=== PATIENT | female | born 1950 | race Caucasian/White ===

== ENCOUNTER → 2017-09-03 | Emergency (ER) | payer OTHER ==
[~2017-09-03] VITALS: Ht 167.6 cm; Wt 97.5 kg
[~2017-09-03] MED LIST: AMBIEN5 MG PO; CALCIUM1 TAB PO; FAMOTIDINE20 MG/2 M1 IV; FIORICET 50-301 EACH; FIORICET 50-321 EACH PO; FLOVENT HFA12 GM; IMITREX100 MG PO; MEDROL4 MG PO; NEURONTIN300 MG; NEURONTIN300 MG PO; NORTUSS-EX LIQ118 ML PO; SYNTHROID100 MCG PO; SYNTHROID75 MCG; SYNTHROID88 MCG PO; Synthroid PO; TESSALON PERLE100 M1 PO; TUSICOF LIQUID120 ML PO; TUSSIONEX PENNKI5 ML PO; ULTRACET; ULTRAM50 MG; ULTRAM50 MG PO; XANAX2 MG PO; XOPENEX0.63 MG/3 IH; XOPENEX1.25 MG/0. IH; ZOLOFT100 MG; ZOLOFT50 MG PO
== END | disposition home or self-care (01) ==
LOC: ER 10:39
DX: K57.32 Diverticulitis of large intestine without perforation or abscess without bleeding (principal); M54.5 Low back pain

== ENCOUNTER 2018-06-16 18:41 | Emergency (ER) | payer OTHER ==
[~2018-06-16] VITALS: Ht 165.1 cm; Wt 99.8 kg
[~2018-06-16 18:41] MED LIST changes: -SYNTHROID75 MCG; +SYNTHROID75 MCG PO
[2018-06-19] MEDS ORDERED: FIORICET PO (10:09)
[2018-06-19] MEDS ORDERED: AMBIEN CR12.5 MG PO (10:10)
== END 2018-06-16 22:52 | disposition home or self-care (01) ==
LOC: ER 18:41
DX: S30.0XXA Contusion of lower back and pelvis, initial encounter (principal); W06.XXXA Fall from bed, initial encounter; Y93.89 Activity, other specified; Y92.013 Bedroom of single-family (private) house as the place of occurrence of the external cause; Y99.8 Other external cause status

== ENCOUNTER 2018-06-20 06:32 | Day surgery (SDC) | payer OTHER ==
[~2018-06-20 06:32] MED LIST changes: +AMBIEN CR12.5 MG PO; +FIORICET PO
[2018-06-20] MEDS ORDERED: DUI500 PO (12:29)
[2018-06-20] MEDS ORDERED: ALEVE220 M1 PO (12:29)
[2018-06-20] MEDS ORDERED: PERCOCET 5-3251 EACH PO (12:29)
== END 2018-06-20 18:00 | disposition home or self-care (01) ==
LOC: CIR.AMB 06:32
DX: S82.852A Displaced trimalleolar fracture of left lower leg, initial encounter for closed fracture (principal); S93.04XA Dislocation of right ankle joint, initial encounter; S93.422A Sprain of deltoid ligament of left ankle, initial encounter; S93.492A Sprain of other ligament of left ankle, initial encounter; S90.02XA Contusion of left ankle, initial encounter; M81.0 Age-related osteoporosis without current pathological fracture; E66.8 Other obesity

== ENCOUNTER 2018-10-21 12:09 | Emergency (ER) | payer OTHER ==
[~2018-10-21] VITALS: Ht 170.2 cm; Wt 97.5 kg
[~2018-10-21 12:09] MED LIST changes: +ALEVE220 M1 PO; +DICLOFENAC POTA50 MG PO; +DUI500 PO; +LYRICA50 MG PO; +PERCOCET 5-3251 EACH PO; +TRAMADOL HCL50 MG PO; +ULTRACET PO
[2018-10-21] MEDS ORDERED: OMEPRAZOLE20 MG (12:55)
[2018-10-21] MEDS ORDERED: IMITREX100 MG (12:55)
== END 2018-10-21 18:07 ==
LOC: ER 12:09
DX: G43.809 Other migraine, not intractable, without status migrainosus (principal)

== ENCOUNTER 2019-03-12 11:53 | Emergency (ER) | payer OTHER ==
[~2019-03-12] VITALS: Ht 167.6 cm; Wt 90.7 kg
[~2019-03-12 11:53] MED LIST changes: +IMITREX100 MG; +OMEPRAZOLE20 MG
[2019-03-12] MEDS ORDERED: DULCOLAX STOOL100 M1 (12:16)
== END 2019-03-12 19:07 | disposition home or self-care (01) ==
LOC: ER 11:53
DX: G43.409 Hemiplegic migraine, not intractable, without status migrainosus (principal); K57.32 Diverticulitis of large intestine without perforation or abscess without bleeding

== ENCOUNTER 2019-11-30 15:20 | Day surgery (SDC) | payer OTHER ==
[~2019-11-30 15:20] MED LIST changes: +CELEBREX200MG PO; +CYCLOBENZAPRINE10 MG PO; +DULCOLAX STOOL100 M1; -ZOLOFT100 MG; +ZOLOFT100 MG PO
[2019-11-30] MEDS ORDERED: ALEVE220 M1 PO (15:32)
[2019-11-30] MEDS ORDERED: DUI500 PO (15:32)
[2019-11-30] MEDS ORDERED: PERCOCET 5-3251 EACH PO (15:32)
== END 2019-11-30 18:10 | disposition home or self-care (01) ==
LOC: CIR.AMB 15:20
DX: S52.532A Colles' fracture of left radius, initial encounter for closed fracture (principal); S52.692A Other fracture of lower end of left ulna, initial encounter for closed fracture; M81.0 Age-related osteoporosis without current pathological fracture
CPT/HCPCS: 20902; 25609; 25652; C1776

== ENCOUNTER 2021-03-30 12:59 | Emergency (ER) | payer OTHER ==
[~2021-03-30] VITALS: Ht 167.6 cm; Wt 98.4 kg
[2021-03-30] MEDS ORDERED: LEVOTHYROXINE25 MCG (13:32)
[2021-03-30] MEDS ORDERED: DICLOFENAC SODI75 MG PO (17:33)
== END 2021-03-30 17:40 | disposition home or self-care (01) ==
LOC: ER 12:59
DX: G89.18 Other acute postprocedural pain (principal); M25.532 Pain in left wrist; M79.642 Pain in left hand

== ENCOUNTER 2024-03-12 12:53 | Emergency (ER) | payer OTHER ==
[~2024-03-12] VITALS: Ht 167.6 cm; Wt 66.2 kg
[~2024-03-12 12:53] MED LIST changes: +DICLOFENAC SODI75 MG PO; +LEVOTHYROXINE25 MCG; +ONZETRA XSAIL11 MG; +SYNTHROID88 MCG
[2024-03-12] MEDS ORDERED: BUTALB/ACETAMINOPHEN/CAFFEINE 1 TAB TABLET PO ONE (14:15)
[2024-03-12 14:36] LABS: HEMATOCRIT 37.1 % (36.0-45.00); HEMOGLOBIN 12.7 g/dL (12.0-15.00); MEAN CELL VOLUME 86.4 fL (80.00-100.00); MEAN CORPUSCULAR HEMOGLOBIN 29.7 pg (27.00-32.0); MEAN CORPUSCULAR HGB CONC 34.4 g/dl (32.0-36.0); PLATELET COUNT 177 K/uL (150-450); RED BLOOD COUNT 4.29 M/uL (4.00-6.00); RED CELL DISTRIBUTION WIDTH 14.7 % (11.5-14.5)
[2024-03-12 15:00] LABS: ALBUMIN 3.8 gm/dL (3.4-5.0); BILIRUBIN TOTAL 0.34 mg/dL (0.3-1.2); CALCIUM 9.5 mg/dL (8.5-10.1); CREATININE SERUM 0.45 mg/dL (0.55-1.02); GFR 135.83; GLOBULINA 3.9 G/DL (2.4-3.5); POTASSIUM 4.08 mEq/L (3.5-5.1); TOTAL PROTEIN 7.7 gm/dL (6.4-8.2)
== END 2024-03-12 16:38 | disposition home or self-care (01) ==
LOC: ER 12:53
PROVIDERS: General Practice
DX: R51.9 Headache, unspecified (principal); Z20.822 Contact with and (suspected) exposure to COVID-19; E03.8 Other specified hypothyroidism; Z88.1 Allergy status to other antibiotic agents

== ENCOUNTER → 2024-11-03 | Emergency (ER) | payer OTHER ==
[~2024-11-03] VITALS: Ht 165.1 cm; Wt 88.0 kg
[~2024-11-03] MED LIST changes: +DEXAMETHASONE SODIUM PHOSPHATE 4 MG/ML VIAL IM STA; +DEXAMETHASONE SODIUM PHOSPHATE 4 MG/ML VIAL ONE; +KETOROLAC TROMETHAMINE 60 MG VIAL IM ONE; +KETOROLAC TROMETHAMINE 60 MG VIAL IM STA
[2024-11-03 16:32] LABS: HEMATOCRIT 37.6 % (36.0-45.00); HEMOGLOBIN 12.4 g/dL (12.0-15.00); MEAN CELL VOLUME 87.2 fL (80.00-100.00); MEAN CORPUSCULAR HEMOGLOBIN 28.7 pg (27.00-32.0); MEAN CORPUSCULAR HGB CONC 32.9 g/dl (32.0-36.0); PLATELET COUNT 158 K/uL (150-450); RED BLOOD COUNT 4.31 M/uL (4.00-6.00); RED CELL DISTRIBUTION WIDTH 15.1 % (11.5-14.5)
[2024-11-03 17:20] LABS: CALCIUM 8.5 mg/dL (8.5-10.1); CREATININE SERUM 0.67 mg/dL (0.55-1.02); GFR 85.57; POTASSIUM 4.1 mEq/L (3.5-5.1)
[2024-11-03 17:48] LABS: URINE APPEARANCE Clear; URINE BILIRRUBIN Negative (NEGATIVE); URINE BLOOD Negative; URINE COLOR Yellow; URINE GLUCOSE Negative (NEGATIVE); URINE KETONE Negative (NEGATIVE); URINE LEUKOCYTE Negative; URINE NITRATE Negative; URINE PROTEIN Negative (NEGATIVE); URINE UROBILINOGEN 0.2 E.U./dl
[2024-11-03 17:52] LABS: URINE BACTERIA 58.7 uL (0.0-1933); URINE EPITHELIAL CELLS 2.6 uL (0.0-38.8); URINE RBC 2.5 uL (0.0-20.8); URINE WBC 6.4 uL (0.0-23.2)
== END | disposition home or self-care (01) ==
LOC: ER 14:14
PROVIDERS: General Practice
DX: R53.81 Other malaise (principal); M13.0 Polyarthritis, unspecified; Z88.1 Allergy status to other antibiotic agents